=== PATIENT | female | born 1940 | race Asian ===

== ENCOUNTER 2022-06-24 21:04 | Emergency (ER) | payer OTHER ==
[~2022-06-24] VITALS: Ht 180.3 cm; Wt 43.5 kg
--- NOTE | 2022-06-24 21:09 | NUR ---
[id number] HOME FOR GL[facility] , +HEMATOMA -KO -THINNERS. PT A/O X 4, RR EVEN AND UNLABORED. VSS. NAD
--- NOTE | 2022-06-24 21:10 | NUR ---
AT BEDSIDE FOR EVAL
[2022-06-24] MEDS ORDERED: LIDOCAINE 1% INJ 50 ML MDV IJ ONE (21:26)
[2022-06-24] MEDS ORDERED: TDAP [DIPH/PERTUSSIS/TET] 0.5 ML VIAL IM ONE ×2 (21:30)
--- NOTE | 2022-06-24 21:50 | NUR ---
BROUGHT TO CT DEPT
--- NOTE | 2022-06-24 22:05 | NUR ---
CAME BACK FROM CT SCAN
[2022-06-24] MEDS ORDERED: ACETAMINOPHEN 325 MG TABLET PO ONE (23:00)
[2022-06-24] MEDS ORDERED: ACETAMINOPHEN 325 MG TABLET ONE (23:09)
--- NOTE | 2022-06-24 23:17 | NUR ---
Patient discharged to home in stable condition. Written and verbal after care instructions given. Patient AND RELATIVE verbalizes understanding of instruction.
[2022-06-24 23:18] VITALS: BP 145/75
== END 2022-06-24 23:17 | disposition home or self-care (01) ==
LOC: ER 21:20
DX: S01.01XA Laceration without foreign body of scalp, initial encounter (principal); I10 Essential (primary) hypertension; W07.XXXA Fall from chair, initial encounter; Y93.89 Activity, other specified; Y92.89 Other specified places as the place of occurrence of the external cause; Y99.8 Other external cause status
CPT/HCPCS: 99285; 72125; 12002; 90471; 90715; 70450; J3490; A6403

== ENCOUNTER 2022-07-06 13:53 | Emergency (ER) | payer OTHER ==
[~2022-07-06] VITALS: Ht 152.4 cm; Wt 49.9 kg
[2022-07-06 14:05] VITALS: BP 119/59
== END 2022-07-06 14:30 | disposition home or self-care (01) ==
LOC: ER 14:05
DX: S01.01XD Laceration without foreign body of scalp, subsequent encounter (principal); I10 Essential (primary) hypertension; X58.XXXD Exposure to other specified factors, subsequent encounter